=== PATIENT | female | born 1960 | race Caucasian/White ===

== ENCOUNTER 2016-12-24 14:19 | Outpatient (CLI) | payer OTHER ==
--- NOTE | 2016-12-24 15:43 | XRAY Report ---
TWO-VIEW LUMBAR SPINE: 12/24/2016 CLINICAL INDICATION: Back pain. FINDINGS: Frontal and lateral views of the lumbar spine demonstrate mild degenerative disc and facet disease at L5-S1. There is no evidence of fracture. The bowel gas pattern is normal. IMPRESSION: MILD DEGENERATIVE CHANGES AT L5-S1. JOB #: [id number] EXT JOB #:[id number]
--- NOTE | 2016-12-24 15:44 | XRAY Report ---
THREE VIEW RIGHT KNEE: 12/24/2016 CLINICAL INDICATION: Pain. AP, lateral, sunrise views of the right knee demonstrate no evidence of fracture or dislocation. The joint spaces are preserved. No radiopaque foreign body is seen in the soft tissues. IMPRESSION: NORMAL RIGHT KNEE. JOB #: [id number] EXT JOB #:[id number]
== END 2016-12-24 14:20 | disposition home or self-care (01) ==
LOC: DI 14:19
PROVIDERS: ATTEND Physician Assistant Medical
DX: M51.37 Other intervertebral disc degeneration, lumbosacral region (principal); M54.5 Low back pain; G89.29 Other chronic pain; M25.561 Pain in right knee
CPT/HCPCS: 72100

== ENCOUNTER 2017-01-15 16:32 | Outpatient (CLI) | payer OTHER ==
--- NOTE | 2017-01-16 11:01 | MRI Report ---
EXAM: RIGHT KNEE MRI WITHOUT CONTRAST EXAM DATE: 01/15/2017 05:43 PM. CLINICAL HISTORY: KNEE JOINT PAIN, RT. COMPARISON: RIGHT KNEE RADIOGRAPHY 12/24/2016. TECHNIQUE: Multiplanar, multisequence T1-weighted and fluid-sensitive sequences of the knee without c ontrast. Other: None. FINDINGS: Bones: No cortical fractures or subluxations. Diffuse marrow edema in the proximal tibia, medial more than lateral, consistent with contusion. No bone lesions. Articular Cartilage: Grade 2-3 cartilaginous degeneration with mild thinning and irregular surface in the patella, trochlea and medial femoral condyle. Medial Meniscus: A small radial tear in the posterior meniscal root of the medial meniscus. Lateral Meniscus: The lateral meniscus is intact. Cruciate Ligaments: The anterior and posterior cruciate ligaments are intact. Collateral Ligaments: The medial collateral and lateral collateral ligamentous structures are intact. Tendons: The quadriceps, patellar, semimembranosus, and popliteus tendons are unremarkable. Musculature: No edema or fatty atrophy. Other: Mild effusion without hemarthrosis or significant synovitis. No popliteal cyst. No loose naseem s. The medial and lateral retinacula, patellofemoral ligaments and iliotibial band are intact. No bu rsitis. Mild diffuse subcutaneous edema around the knee without focal hematoma. The fat pads are unre markable. IMPRESSION: 1. Diffuse marrow edema in the proximal tibia, medial more than lateral, consistent with contusion. N o cortical fracture. 2. A small radial tear in the posterior meniscal root of the medial meniscus. 3. Grade 2-3 cartilaginous degeneration with mild thinning and irregular surface in the patella, troc hlea and medial femoral condyle. 4. Mild effusion without hemarthrosis or significant synovitis. 5. Mild diffuse subcutaneous edema around the knee without focal hematoma, can be due to soft tissue contusion. 6. Collateral and cruciate ligaments are intact. [facility] MUSCULOSKELETAL RADIOLOGY SECTION Referring Provider Line: [phone] SITE ID: [id number]
== END 2017-01-15 16:33 | disposition home or self-care (01) ==
LOC: DI 16:32
PROVIDERS: ATTEND Physician Assistant Medical
DX: M25.561 Pain in right knee (principal); S83.241A Other tear of medial meniscus, current injury, right knee, initial encounter; S80.01XA Contusion of right knee, initial encounter; M25.461 Effusion, right knee

== ENCOUNTER 2017-05-17 09:44 | Outpatient (CLI) | payer OTHER ==
--- NOTE | 2017-05-17 16:33 | Mammography Report ---
DATE OF SERVICE: 05/17/2017 DIGITAL DIAGNOSTIC BILATERAL MAMMOGRAM: 05/17/2017 CLINICAL INDICATION: Localized left breast tenderness. TECHNIQUE: Bilateral CC and MLO views, left true lateral view. Markers were placed at the site of maximal tenderness identified by the patient in the left upper outer quadrant. COMPARISON: 08/04/2015, 04/27/2014, 07/29/2009. FINDINGS: The breasts again demonstrate scattered fibroglandular densities bilaterally. Punctate, typically benign calcifications are present. No suspicious masses, clustered microcalcifications, or regions of architectural distortion are identified. Specifically, no mammographic abnormality is appreciated in the left upper outer quadrant, at the site indicated by the markers. IMPRESSION: BENIGN FINDINGS. RECOMMENDATION: ROUTINE ANNUAL SCREENING UNLESS OTHERWISE CLINICALLY INDICATED. BIRADS CATEGORY 2-BENIGN FINDINGS. STANDARD QUALIFYING STATEMENTS: 1. This examination was reviewed with the aid of Computer-Aided Detection (CAD). 2. A negative or benign imaging report should not delay biopsy if clinically suspicious findings are present. Consider surgical consultation if warranted. More than 5% of cancers are not identified by imaging. 3. Dense breasts may obscure an underlying neoplasm. TD: 05/17/2017 17:32
== END 2017-05-17 09:45 | disposition home or self-care (01) ==
LOC: DI 09:44
PROVIDERS: ATTEND Physician Assistant Medical
DX: N64.4 Mastodynia (principal)
CPT/HCPCS: 77066

== ENCOUNTER 2017-10-31 11:26 | Outpatient (CLI) | payer OTHER ==
[2017-10-31 11:49] LABS: BASOPHILS % (AUTO) 0.6 %; EOSINOPHILS # (AUTO) 0.1 10^3/uL (0.0-0.7); EOSINOPHILS % (AUTO) 2.4 %; HGB - HEMOGLOBIN 12.4 g/dL (12.0-16.0); LYMPHOCYTES # (AUTO) 1.4 10^3/uL (1.5-3.5); LYMPHOCYTES % (AUTO) 22.3 %; MEAN CORPUSCULAR HEMOGLOBIN 31.5 pg (27.0-31.0); MEAN CORPUSCULAR HGB CONC 34.3 g/dL (32.0-36.0); MEAN CORPUSCULAR VOLUME 91.9 fL (81.0-99.0); MEAN PLATELET VOLUME 7.5 fL (7.9-10.8); MONOCYTES # (AUTO) 0.6 10^3/uL (0.0-1.0); MONOCYTES % (AUTO) 9.6 %; NEUTROPHILS % (AUTO) 65.1 %; PLT - PLATELET COUNT 229 10^3/uL (130-450); RED BLOOD COUNT 3.93 10^6/uL (4.20-5.40); RED CELL DISTRIBUTION WIDTH 14.1 % (12.0-15.0); WHITE BLOOD COUNT 6.2 x10^3/uL (4.8-10.8)
[2017-10-31 12:09] LABS: % IRON SATURATION 20 % (20-50); ALBUMIN 3.8 g/dL (3.2-5.5); ALKALINE PHOSPHATASE 67 IU/L (42-121); ALT ALANINE AMINOTRANSFERASE 16 IU/L (10-60); AST ASPARTATE AMINOTRANSFERASE 20 IU/L (10-42); BILIRUBIN,TOTAL 0.6 mg/dL (0.2-1.0); BUN - BLOOD UREA NITROGEN 12 mg/dL (6-20); CALCIUM 8.8 mg/dL (8.5-10.3); CARBON DIOXIDE - CO2 27 mmol/L (21-32); CHLORIDE 103 mmol/L (101-111); CHOL/HDL RATIO 3.1 (<4.4); CHOLESTEROL 223 mg/dL; CREATININE 0.8 mg/dL (0.4-1.0); GFR - MDRD 74 (>89); GLUCOSE 87 mg/dL (70-100); HDL CHOLESTEROL 71 mg/dL; IRON 76 ug/dL (28-170); LDL CHOLESTEROL,CALCULATED 131 mg/dL; LDL/HDL RATIO 1.8 (<4.4); SODIUM 136 mmol/L (135-145); TOTAL IRON BINDING CAPACITY 388 ug/dL (250-450); TOTAL PROTEIN 7.5 g/dL (6.7-8.2); TRANSFERRIN 277 mg/dL (192-382); VLDL CHOLESTEROL 21 mg/dL
--- NOTE | 2017-10-31 13:11 | XRAY Report ---
Procedure Date: 10/31/2017 Accession Number: [id number] / [id number] Procedure: XR - Chest 2 View X-Ray CPT Code: 79216 FULL RESULT: EXAM: Chest 2 View X-Ray DATE: 10/31/2017 12:45 PM CLINICAL HISTORY: COUGH COMPARISON: 07/17/2015 TECHNIQUE: 2 views. FINDINGS: Lungs/Pleura: No focal opacities evident. No pneumothorax or pleural effusion. Normal volumes. Mediastinum: Heart and mediastinal contours are unremarkable. Other: None. IMPRESSION: Normal 2-view chest radiography. [facility]
== END 2017-10-31 11:27 | disposition home or self-care (01) ==
LOC: LAB 11:26
PROVIDERS: ATTEND Physician Assistant Medical
DX: Z00.00 Encounter for general adult medical examination without abnormal findings (principal); R53.83 Other fatigue; R05 Cough
CPT/HCPCS: 36415; 71046; 80053; 80061; 83540; 83721; 84443; 84466; 85025

== ENCOUNTER 2017-11-22 13:00 | Outpatient (CLI) | payer OTHER ==
--- NOTE | 2017-11-22 15:44 | Ultrasound Report ---
Procedure Date: 11/22/2017 Accession Number: [id number] / [id number] Procedure: US - Pelvic w/Transvaginal CPT Code: FULL RESULT: EXAM: Pelvic w/Transvaginal DATE: 11/22/2017 2:40 PM CLINICAL HISTORY: EXCESSIVE MENSTRUATION COMPARISON: None. TECHNIQUE: Realtime transabdominal imaging performed to identify the uterus and adnexa and as an overview of other pelvic structures, followed by transvaginal imaging for better assessment of the endometrium and/or adnexa, with static image documentation. FINDINGS: Uterus: 9.8 x 5.7 x 4.9 cm, volume 143 cc. Anteverted position. Multiple submucosal and intramural fibroids are identified, the largest fibroid measures up to 1.9 cm and is submucosal in position. Endometrium: 7 mm. Deformed by submucosal fibroids. Cervix: Unremarkable. Right Ovary/Adnexa: 2.6 x 1.9 x 1.1 cm, volume 2.8 cc. Normal echotexture. Blood flow is present. No adnexal mass is seen. Left Ovary/Adnexa: 3.0 x 1.5 x 1.3 cm, volume 3 cc. Normal echotexture. Blood flow is present. No adnexal mass is seen. Free Fluid: None. Other: None. IMPRESSION: Fibroid uterus including submucosal fibroids. [facility]
== END 2017-11-22 13:01 | disposition home or self-care (01) ==
LOC: DI 13:00
PROVIDERS: ATTEND Physician Assistant
DX: D25.1 Intramural leiomyoma of uterus (principal); D25.0 Submucous leiomyoma of uterus
CPT/HCPCS: 76830; 76856

== ENCOUNTER 2018-07-07 14:43 | Outpatient (CLI) | payer OTHER ==
--- NOTE | 2018-07-08 00:51 | Ultrasound Report ---
Reason: PELVIC PAIN, CHRONIC Procedure Date: 07/07/2018 Accession Number: [id number] / [id number] Procedure: US - Pelvic w/Transvaginal CPT Code: FULL RESULT: EXAM: PELVIC ULTRASOUND EXAM DATE: 07/07/2018 03:08 PM. CLINICAL HISTORY: PELVIC PAIN, CHRONIC. COMPARISON: PELVIC W/TRANSVAGINAL 11/22/2017 1:09 PM. TECHNIQUE: Realtime transabdominal pelvic scan performed to identify the uterus and adnexa and as an overview of other pelvic structures, followed by transvaginal scan to provide greater detail of the uterus and adnexa, with static image documentation. FINDINGS: Uterus: 9.4 x 6.5 x 5.1 cm, volume 163 cc. Anteverted position. Heterogeneous myometrium. Masses: Leiomyomas, now measuring up to 2.4 cm in diameter, slightly increased from previous. Endometrium: 4 mm. Normal. Cervix: Unremarkable. Right Ovary: 5.6 x 4.2 x 4.5 cm, volume 62 cc. The right ovary contains a 4.1 cm simple cyst. Normal flow is seen to the surrounding ovarian parenchyma. Left Ovary: 2.7 x 1.6 x 1.3 cm, volume 3 cc. Normal echotexture and blood flow. Free Fluid: None. Other: None. IMPRESSION: 4.1 cm simple right ovarian cyst. Follow-up scan in 2-3 months is recommended to document resolution. Slight increase in size of multiple leiomyomas in the uterus. Normal endometrium. [facility]
== END 2018-07-07 14:44 | disposition home or self-care (01) ==
LOC: DI 14:43
PROVIDERS: ATTEND Physician Assistant
DX: N83.201 Unspecified ovarian cyst, right side (principal); D25.9 Leiomyoma of uterus, unspecified
CPT/HCPCS: 76830; 76856

== ENCOUNTER 2019-03-11 14:07 | Outpatient (CLI) | payer OTHER ==
--- NOTE | 2019-03-11 15:27 | Ultrasound Report ---
Reason: CALF PAIN LT Procedure Date: 03/11/2019 Accession Number: [id number] / [id number] Procedure: US - Duplex Ext Veins Left CPT Code: Addended Final Report FULL RESULT: EXAM: LEFT LOWER EXTREMITY VENOUS ULTRASOUND EXAM DATE: 03/11/2019 03:11 PM. CLINICAL HISTORY: CALF PAIN LT. COMPARISON: DUPLEX EXT VEINS LEFT 07/27/2015 5:15 PM. TECHNIQUE: Real-time sonographic vascular imaging was performed by the supervisor coal handling through the lower extremity utilizing both color-flow and Doppler spectral analysis. Multiple technology sales representative static images were saved for review. FINDINGS: Common Femoral Vein (CFV): Normal. CFV-GSV Junction: Nonocclusive thrombus is present within the left greater saphenous vein. Profunda Femoral Vein (PFV): Normal. Femoral Vein (FV) Prox: Normal. Femoral Vein (FV) Mid: Normal. Femoral Vein (FV) Dist: Normal. Popliteal Vein: Normal. Posterior Tibial Veins: Normal. Peroneal Veins: Normal. Other: None. IMPRESSION: 1. No evidence of left lower extremity deep venous thrombosis. 2. Nonocclusive thrombus in the left greater saphenous vein. [facility] The call report notification system was initiated by Dr. Mikhail Pack at 03:25 PM on 03/11/2019. ADDENDUM: 03/11/19 15:41 The above call report findings were discussed with [place] WARE by Dr. Mikhail Pack at 03:41 PM on 03/11/2019.
== END 2019-03-11 14:08 | disposition home or self-care (01) ==
LOC: DI 14:07
PROVIDERS: ATTEND Physician Assistant Medical
DX: I82.812 Embolism and thrombosis of superficial veins of left lower extremity (principal)

== ENCOUNTER 2019-04-16 15:37 | Outpatient (CLI) | payer OTHER ==
--- NOTE | 2019-04-18 09:55 | Ultrasound Report ---
Reason: RT OVARIAN CYST Procedure Date: 04/16/2019 Accession Number: [id number] / [id number] Procedure: US - Pelvic w/Transvaginal CPT Code: Final Report FULL RESULT: EXAM: PELVIC ULTRASOUND EXAM DATE: 04/16/2019 04:42 PM. CLINICAL HISTORY: Follow-up for centimeters right ovarian cyst. COMPARISON: PELVIC W/TRANSVAGINAL 07/07/2018 3:08 PM. TECHNIQUE: Realtime transabdominal pelvic scan performed to identify the uterus and adnexa and as an overview of other pelvic structures, followed by transvaginal scan to provide greater detail of the uterus and adnexa, with static image documentation. FINDINGS: Uterus: Surgically absent. Cervix: Unremarkable. Right Ovary: 2.1 x 1.2 x 1.2 cm, volume 1.5 cc. Normal echotexture and blood flow. Suboptimally visualized. Left Ovary: 2.1 x 1.2 x 1.9 cm, volume 2.6 cc. Normal echotexture and blood flow. Suboptimally visualized. Free Fluid: None. Other: None. IMPRESSION: 1. Interval resolution of right ovarian cystic lesion. 2. Status post hysterectomy. [facility]
== END 2019-04-16 15:38 | disposition home or self-care (01) ==
LOC: DI 15:37
PROVIDERS: ATTEND Obstetrics & Gynecology
DX: N83.201 Unspecified ovarian cyst, right side (principal)
CPT/HCPCS: 76830; 76856

== ENCOUNTER 2020-02-01 16:20 | Outpatient (CLI) | payer OTHER ==
[2020-02-01 18:54] LABS: H. PYLORIS ANTIGEN STL NEGATIVE (Negative)
== END 2020-02-01 23:59 | disposition home or self-care (01) ==
LOC: LAB.R 16:20
PROVIDERS: ATTEND Physician Assistant Medical
DX: K21.9 Gastro-esophageal reflux disease without esophagitis (principal)
CPT/HCPCS: 87338

== ENCOUNTER 2020-02-10 13:03 | Outpatient (CLI) | payer OTHER ==
--- NOTE | 2020-02-10 16:39 | Ultrasound Report ---
PROCEDURE: Abdomen Limited INDICATIONS: GERD TECHNIQUE: Real-time scanning was performed of the abdominal and retroperitoneal organs, with image documentatio n. COMPARISON: None. FINDINGS: Liver: Liver is enlarged measuring 16 cm with increased echotexture. Gallbladder: No stones. Wall thickness is normal limits measuring 1.8 mm. Biliary ducts: Intrahepatic bile ducts are non-dilated. Extrahepatic bile duct caliber measures 5 m m. Normal is 6-7 mm or less in diameter, or 10 mm or less post-cholecystectomy. Pancreas: Visualized portions of the pancreas are sonographically normal. Kidneys: Kidneys are normal in size and echotexture. Right kidney measures 10.6 cm long. No hydron ephrosis or nephrolithiasis. No solid masses. Aorta: Visualized aorta is normal in caliber at less than 3 cm. IVC: Intrahepatic inferior vena cava is patent. IMPRESSION: Mild hepatomegaly with steatosis. Reviewed by: Ely Douglas MD on 02/10/2020 4:38 PM PDT Approved by: Ely Douglas MD on 02/10/2020 4:38 PM PDT Station ID: [id number]
== END 2020-02-10 13:04 | disposition home or self-care (01) ==
LOC: DI 13:03
PROVIDERS: ATTEND Physician Assistant Medical
DX: K21.9 Gastro-esophageal reflux disease without esophagitis (principal); K76.0 Fatty (change of) liver, not elsewhere classified
CPT/HCPCS: 76705

== ENCOUNTER 2020-09-23 17:34 | Emergency (ER) | payer OTHER ==
--- NOTE | 2020-09-23 17:59 | ED Physician Documentation ---
PD HPI ABD PAIN - Stated complaint Stated Complaint: ABD/GROIN PX - Chief complaint Chief Complaint: Abd Pain - History obtained from History obtained from: Patient - Additional information Additional information: 60-year-old woman with history of colonic polyposis, hysterectomy presents with about 3 days worth of right pelvic pain radiating to the right inguinal area. It is also associated with early satiety and smaller stool occult caliber. Also some diminished stools. She denies fevers. She has had some nausea. No urinary complaints. Review of Systems Ten Systems: 10 systems reviewed and negative Constitutional: denies: Fever, Chills Cardiac: denies: Chest pain / pressure, Palpitations Respiratory: denies: Dyspnea, Cough PD PAST MEDICAL HISTORY - Past Medical History Cardiovascular: Hypertension Respiratory: None Endocrine/Autoimmune: None GI: None : None HEENT: None Psych: None Musculoskeletal: None Derm: None - Past Surgical History Past Surgical History: Yes General: Colonoscopy /FITTING ROOM ASSOCIATE: Tubal ligation HEENT: Tonsil/Adenoidectomy - Present Medications Home Medications: Ambulatory Orders Medication Instructions Recorded Confirmed Lisinopril [Zestril] 10 mg PO DAILY 09/23/20 09/23/20 - Allergies Allergies/Adverse Reactions: Allergies Allergy/AdvReac Type Severity Reaction Status Date / Time No Known Drug Allergies Allergy Verified 09/23/20 17:42 - Social History Does the pt smoke?: No Smoking Status: Never smoker Does the pt drink ETOH?: Yes Does the pt have substance abuse?: No - Family History Family history: reports: Non contributory PD ED PE NORMAL - Vitals Vital signs reviewed: Yes - General General: Alert and oriented X 3, No acute distress - HEENT HEENT: PERRL, EOMI - Neck Neck: Supple, no meningeal sign, No bony TTP - Cardiac Cardiac: RRR, No murmur - Respiratory Respiratory: No respiratory distress, Clear bilaterally - Abdomen Abdomen: Normal bowel sounds, Soft, Non tender - Back Back: No CVA TTP, No spinal TTP - Derm Derm: Normal color, Warm and dry - Extremities Extremities: No edema, No calf tenderness / cord - Neuro Neuro: Alert and oriented X 3, Normal speech Results - Vitals Vitals: Vital Signs - 24 hr 09/23/20 17:37 Temperature 36.4 C L Heart Rate 64 Respiratory 16 Rate Blood Pressure 152/82 H O2 Saturation 99 Oxygen O2 Source Room air - Labs Labs: Laboratory Tests 09/23/20 09/23/20 09/23/20 18:09 18:09 18:34 WBC 6.0 RBC 3.91 L Hgb 12.4 Hct 36.3 L MCV 92.8 MCH 31.7 H MCHC 34.2 RDW 13.1 Plt Count 199 MPV 9.6 Neut # (Auto) 3.7 Lymph # (Auto) 1.5 Trigg # (Auto) 0.6 Eos # (Auto) 0.2 Baso # (Auto) 0.0 Absolute Nucleated RBC 0.00 Nucleated RBC % 0.0 Sodium 138 Potassium 3.9 Chloride 107 Carbon Dioxide 26 Anion Gap 5.0 L BUN 19 Creatinine 0.8 Estimated GFR (MDRD) 74 L Glucose 96 Calcium 9.0 Total Bilirubin 0.5 AST 16 ALT 15 Alkaline Phosphatase 65 Total Protein 7.2 Albumin 4.2 Globulin 3.0 Albumin/Globulin Ratio 1.4 Lipase 40 Urine Color YELLOW Urine Clarity CLEAR Urine pH 6.0 Ur Specific [place] 1.025 Urine Protein NEGATIVE Urine Glucose (UA) NEGATIVE Urine Ketones NEGATIVE Urine Occult Blood NEGATIVE Urine Nitrite NEGATIVE Urine Bilirubin NEGATIVE Urine Urobilinogen 0.2 (NORMAL) Ur Leukocyte Esterase NEGATIVE Ur Microscopic Review NOT INDICATED Urine Culture Comments NOT INDICATED - Rads (name of study) CT A/P Radiology: EMP read contemporaneously PD MEDICAL DECISION MAKING - ED course ED course: 60-year-old woman presents with pelvic and back pain radiating to the groin worse with movement. Seems most consistent with a muscular etiology or potentially sciatica. That said the change in stool caliber is not on complaint to go along with that, so a CT was done showing diverticulosis and degenerative disc disease but no acute inflammatory process in the abdomen and a normal appendix. She declined pain medication. We discussed potentially a trial of steroids for sciatica which she declined. Departure - Departure Disposition: 01 Home, Self Care Clinical Impression: Abdominal pain Qualifiers: Abdominal location: right lower quadrant Qualified Code(s): R10.31 - Right lower quadrant pain Sciatica Qualifiers: Laterality: right Qualified Code(s): M54.31 - Sciatica, right side Condition: Good Record reviewed to determine appropriate education?: Yes Instructions: ED Strain Abdominal Muscle, ED Sciatica Comments: As discussed, given the change in stool caliber you do need to talk with your doctor about colonoscopy. Return for new or worsening symptoms. Tylenol or ibuprofen as needed for pain. Follow-up with your physician.
[2020-09-23 18:13] LABS: BASOPHILS % (AUTO) 0.5 %; EOSINOPHILS # (AUTO) 0.2 10^3/uL (0.0-0.7); EOSINOPHILS % (AUTO) 2.9 %; HCT - HEMATOCRIT 36.3 % (37.0-47.0); HGB - HEMOGLOBIN 12.4 g/dL (12.0-16.0); LYMPHOCYTES # (AUTO) 1.5 10^3/uL (1.5-3.5); MEAN CORPUSCULAR HEMOGLOBIN 31.7 pg (27.0-31.0); MEAN CORPUSCULAR HGB CONC 34.2 g/dL (32.0-36.0); MEAN CORPUSCULAR VOLUME 92.8 fL (81.0-99.0); MEAN PLATELET VOLUME 9.6 fL (7.9-10.8); MONOCYTES # (AUTO) 0.6 10^3/uL (0.0-1.0); MONOCYTES % (AUTO) 9.2 %; NEUTROPHILS # (AUTO) 3.7 10^3/uL (1.5-6.6); NEUTROPHILS % (AUTO) 62.2 %; PLT - PLATELET COUNT 199 10^3/uL (130-450); RED BLOOD COUNT 3.91 10^6/uL (4.20-5.40); RED CELL DISTRIBUTION WIDTH 13.1 % (12.0-15.0)
--- OUTSIDE RECORDS SUMMARY | 2020-09-23 18:17 | EXTERNAL MEDICAL SUMMARY RPT | Continuity of Care Document ---
:1960 Demographics Phone Unavailable Preferred Language Unknown Marital Status Unknown Confucianist Affiliation Unknown Race Unknown Ethnic Group Unknown Author Organization [facility] Address [address] [place] [address] Phone Allergies Encounters Medications Problems Results
[2020-09-23] MEDS ORDERED: IOVERSOL 320 100 ML VIAL IVP ONE ×2 (18:23→20:15)
[2020-09-23 18:26] LABS: ALBUMIN 4.2 g/dL (3.2-5.5); ALBUMIN/GLOBULIN RATIO 1.4 (1.0-2.2); BILIRUBIN,TOTAL 0.5 mg/dL (0.2-1.0); CREATININE 0.8 mg/dL (0.4-1.0); POTASSIUM 3.9 mmol/L (3.5-5.0); TOTAL PROTEIN 7.2 g/dL (6.7-8.2)
[2020-09-23 18:50] LABS: BILIRUBIN,URINE NEGATIVE (NEGATIVE); GLUCOSE, URINE (UA) NEGATIVE (NEGATIVE); KETONES,URINE (UA) NEGATIVE (NEGATIVE); LEUKOCYTE ESTERASE, URINE NEGATIVE (NEGATIVE); NITRITE,URINE NEGATIVE (NEGATIVE); OCCULT BLOOD,URINE NEGATIVE (NEGATIVE); PROTEIN,URINE NEGATIVE (NEGATIVE); UROBILINOGEN,URINE 0.2 (NORMAL) E.U./dL (NORMAL)
[2020-09-23 18:52] LABS: CLARITY,URINE CLEAR (CLEAR)
--- NOTE | 2020-09-23 19:36 | CT Report ---
PROCEDURE: Abdomen/Pelvis W INDICATIONS: Upper and lower abd pain CONTRAST: IV CONTRAST: Optiray 320 ml: 100 PO CONTRAST: *NO PO CONTRAST TECHNIQUE: After the administration of intravenous contrast, 5 mm thick sections acquired from the diaphragms to the symphysis. 5 mm thick coronal and sagittal reformats were acquired. For radiation dose reducti on, the following was used: automated exposure control, adjustment of mA and/or kV according to sona ent size. COMPARISON: Abdominal ultrasound 02/10/2020. FINDINGS: Image quality: Excellent. ABDOMEN: Lung bases: Lung bases are clear. Heart size is normal. Solid organs: Liver and spleen are normal in size. Gallbladder is unremarkable. Biliary system is non dilated. Pancreas enhances normally. No adrenal nodules. Kidneys demonstrate normal size and e nhancement, without hydronephrosis. Peritoneum and bowel: No small bowel obstruction. Sigmoid colon diverticulosis. No diverticulitis dem onstrated. Normal appendix. No free fluid or air. Nodes and vessels: No retroperitoneal or mesenteric adenopathy by size criteria. Aorta and inferior vena cava are normal in size. Miscellaneous: No significant ventral hernias. PELVIS: Genitourinary: Bladder is unremarkable and only partially distended. Retroverted uterus. No free flu id. Miscellaneous: No inguinal hernias or adenopathy. Bones: No suspicious bony lesions. L5-S1 DDD. No vertebral body compression fractures. IMPRESSION: No acute inflammatory process is identified. No free fluid. Diverticulosis. No diverticulitis demonstrated. Normal appendix. Reviewed by: Davide Blue MD on 09/23/2020 7:34 PM PDT Approved by: Davide Blue MD on 09/23/2020 7:34 PM PDT Station ID: [id number]
[2020-09-23 20:02] VITALS: BP 142/79
== END 2020-09-23 20:25 | disposition home or self-care (01) ==
LOC: ED 17:34
DX: R10.31 Right lower quadrant pain (principal); M54.31 Sciatica, right side; K57.30 Diverticulosis of large intestine without perforation or abscess without bleeding; M51.37 Other intervertebral disc degeneration, lumbosacral region; I10 Essential (primary) hypertension
CPT/HCPCS: 36415; 74177; 80053; 81003; 83690; 85025; 99284; Q9967; 81001; 87086

== ENCOUNTER 2020-10-12 10:54 | Outpatient (CLI) | payer OTHER ==
--- NOTE | 2020-10-12 15:02 | Nuclear Medicine Report ---
PROCEDURE: Hepatobiliary HIDA w/ Rx INDICATIONS: RIGHT UPPER QUAD PAIN RADIOPHARMACEUTICAL: 4.9 mCi Tc-99m meprofenin i.v. and 8 oz Ensure by mouth. TECHNIQUE: Following intravenous administration of Tc-99m meprofenin, sequential anterior abdominal images were obtained through 55 minutes. To evaluate the contractile response of the gallbladder in response to a fatty meal, 8 ounces of Ensure was administered by mouth approximately 1 hour after th e administration of the radiopharmaceutical. Sequential imaging was continued for 55 minutes after E nsure administration. Gallbladder ejection fraction was calculated. COMPARISON: CT abdomen pelvis 09/15/2020, ultrasound abdomen 02/10/2020. FINDINGS: Biliary scan: There is normal tracer uptake and excretion by the liver. There is normal visualizati on of the intrahepatic ducts, common bile duct, and gallbladder. There is normal tracer transit into the duodenum. CCK stimulation: There is progressive contractile response of the gallbladder to Ensure administrati on. The calculated gallbladder ejection fraction is 56%; normal values are above 35%. IMPRESSION: 1. Normal study without gallbladder dysfunction to suggest cholecystitis. Reviewed by: Matthew Giang MD on 10/12/2020 3:00 PM PDT Approved by: Matthew Giang MD on 10/12/2020 3:00 PM PDT Station ID: [id number]
--- NOTE | 2020-10-13 08:19 | Ultrasound Report ---
PROCEDURE: Pelvic w/Transvaginal INDICATIONS: CHRONIC PELVIC PAIN, RIGHT UPPER QUAD PAIN TECHNIQUE: Real-time scanning was performed of the pelvic organs, with image documentation. Additional endovagi nal scanning was necessary due to incomplete visualization of the adnexal and endometrial structures by transabdominal scanning. COMPARISON: None. FINDINGS: No pathologic free abdominal or pelvic fluid. Uterus: Status post hysterectomy. Ovaries: Unable to image, possible prior nephrectomy. Please correlate with history. Miscellaneous: The exam is limited due to bowel gas and body habitus. In the area of pain a questiona ble small fat-containing reducible hernia is identified which is difficult to define with ultrasound. Note that prior CT on 07/24/2020 imaged this area with no abnormality identified. IMPRESSION: 1. No acute ultrasound abnormality of the pelvis. 2. Limited exam due to overlying bowel gas and body habitus. 3. Possible small reducible fat-containing hernia on the right in the area of pain. Reviewed by: Shiv Torres on 10/13/2020 8:18 AM PDT Approved by: Shiv Torres on 10/13/2020 8:18 AM PDT Station ID: [id number]
== END 2020-10-12 10:55 | disposition home or self-care (01) ==
LOC: DI 10:54
PROVIDERS: ATTEND Physician Assistant Medical
DX: R10.11 Right upper quadrant pain (principal); R10.2 Pelvic and perineal pain; G89.29 Other chronic pain
CPT/HCPCS: 78227

== ENCOUNTER 2021-04-18 08:24 | Day surgery (SDC) | payer OTHER ==
[2021-04-18] MEDS ORDERED: LACTATED RINGERS 1,000 ML IV ONE (08:53)
--- NOTE | 2021-04-18 09:03 | ANESTHESIA ---
Pre-Anesthesia VS, & Labs - Diagnosis colon polyps - Procedure colonoscopy, banding Vital Signs: Temp Pulse Resp BP Pulse Ox 36.7 C 87 14 163/90 H 96 04/18/21 08:46 04/18/21 08:46 04/18/21 08:46 04/18/21 08:46 04/18/21 08:46 Height: 5 ft 8 in Weight (kg): 92.7 kg Body Mass Index: 31.0 BMI Classification: Obese - NPO >8 hours - Is Patient ?: No Home Medications and Allergies Lisinopril [Zestril] 10 mg PO DAILY 09/23/20 Allergies/Adverse Reactions: Allergies Allergy/AdvReac Type Severity Reaction Status Date / Time No Known Drug Allergies Allergy Verified 09/23/20 17:42 Anes History & Medical History - Anesthetic History Anesthesia Complications: reports: No previous complications - Medical History Cardiovascular: reports: Hypertension, Other Pulmonary: reports: None Gastrointestinal: reports: GERD Urinary: reports: None Musculoskeletal: reports: Osteoarthritis Endocrine/Autoimmune: reports: None Skin: reports: Psoriasis Smoking Status: Never smoker History of Cancer?: No - Surgical History General: reports: Colonoscopy, Other Eyes Ears Nose Throat (EENT): reports: Tonsil/Adenoidectomy Gynecologic: reports: Tubal ligation, Hysterectomy Exam General: Alert Dental: WNL Mouth Opening: Greater than 4 Fingerbreadths Neck Mobility: Normal Mallampati classification: II Thyromental Distance: greater than 6 cm Respiratory: Lungs clear Cardiovascular: Regular rate Plan Anesthesia Type: Total IV Consent for Procedure(s) Verified and Reviewed: Yes Code Status: Attempt Resuscitation ASA classification: 2-Mild systemic disease Is this case an emergency?: No
[2021-04-18] MEDS ORDERED: PROPOFOL 500 MG/50 ML 500 MG/50 ML VIAL ONE (09:34)
[2021-04-18] MEDS ORDERED: MIDAZOLAM 2 MG/2 ML VIAL ONE (09:35)
[2021-04-18] MEDS ORDERED: LIDOCAINE-MPF 2% 5 ML VIAL ONE (10:24)
[2021-04-18] MEDS ORDERED: PROPOFOL 200 MG/20 ML VIAL IVP ONE ×3 (10:56→11:20)
[2021-04-18] MEDS ORDERED: LACTATED RINGERS 450 ML IV ONE (11:27)
[2021-04-18] MEDS ORDERED: ACETAMINOPHEN 325 MG TABLET PO ONE (12:41)
[2021-04-18 12:58] VITALS: BP 135/84
--- NOTE | 2021-04-18 13:14 | OPERATIVE REPORT ---
Operative Report - General Procedure Date: 04/18/21 Planned Procedure: Examination under anesthesia with hemorrhoid banding Pre-Op Diagnosis: Symptomatic Internal hemorrhoids Procedure Performed: Examination under anesthesia with hemorrhoid banding following colonoscopy Post Op Diagnosis: Symptomatic Internal Hemorrhoids - Procedure Note Primary Surgeon: Caryn Anesthesia Provider: LYUBOV Araujo Anesthesia Technique: MAC Pathology: None Estimated Blood Loss (mL): 1 Indications: Symptomatic internal hemorrhoids Findings: A full maribell of enlarged internal hemorrhoids with associated inflammatory polyps Complications: None apparent - Other Other Information/Narrative: Colonoscopy was completed immediately prior to the banding procedure. Timeout wa s done at the start of the colonoscopy procedure.The patient remained sedated with monitored anesthesia care at this time. All elements of the surgical safety checklist were followed before, during, and after this procedure. The anoscope with obturator was lubricated and placed in the patient's anal canal. The obturator was removed and the slots aligned to allow access to 3 column internal hemorrhoids. The device, the Brightstorm multi band ligator-short shot-was placed into the anal canal. The tip of the device was placed in contact with the tissue to be treated beginning at the 4 o'clock position. The suction port was closed. A single band was deployed and the suction port released.The band was noted to be in place.We next addressed the hemorrhoid complex at 7:00.The tip of the device was placed in contact with the tissue, the suction port covered, a band deployed, the suction port released. Again we were able to see that the band was in place.We next addressed the hemorrhoid at the 11 o'clock position. This was the smallest of the 3. The tip of the device was placed in contact with the tissue, the suction port covered, a band deployed, the suction port released. Again we were able to see that the band was in place.Examination of the anal count canal revealed all [address] The anoscope was removed and the procedure concluded. The patient tolerated the procedure well. She was allowed awaken from sedation and taken to the postanesthesia care unit in good condition.
--- NOTE | 2021-04-18 13:36 | ANESTHESIA POST OP EVALUATION ---
Anesthesia Post Eval - Post Anesthesia Eval Vitals: Last Vital Signs Temp 36.3 C L 04/18/21 12:15 Pulse 62 04/18/21 12:15 Resp 16 04/18/21 12:15 BP 135/84 H 04/18/21 12:15 Pulse Ox 98 04/18/21 12:15 CV Function Including HR & BP: Stable Pain Control: Satisfactory Nausea & Vomiting: Negative Mental Status: Baseline Respiratory Status: Airway Patent Hydration Status: Satisfactory Anesthesia Complications: None
== END 2021-04-18 08:25 | disposition home or self-care (01) ==
LOC: SDS 08:24
PROVIDERS: ATTEND Surgery
PROC: 0DB58ZX Excision of Esophagus, Via Natural or Artificial Opening Endoscopic, Diagnostic (ICD-10-PCS; 2021-04-18)
PROC: 0DBL8ZX Excision of Transverse Colon, Via Natural or Artificial Opening Endoscopic, Diagnostic (ICD-10-PCS; 2021-04-18)
PROC: 0DBK8ZX Excision of Ascending Colon, Via Natural or Artificial Opening Endoscopic, Diagnostic (ICD-10-PCS; 2021-04-18)
PROC: 0DB98ZX Excision of Duodenum, Via Natural or Artificial Opening Endoscopic, Diagnostic (ICD-10-PCS; principal; 2021-04-18 10:00)
PROC: 0DB78ZX Excision of Stomach, Pylorus, Via Natural or Artificial Opening Endoscopic, Diagnostic (ICD-10-PCS; 2021-04-18 10:00)
DX: Z12.11 Encounter for screening for malignant neoplasm of colon (principal); K21.9 Gastro-esophageal reflux disease without esophagitis; K22.0 Achalasia of cardia; K29.70 Gastritis, unspecified, without bleeding; K29.80 Duodenitis without bleeding; K57.30 Diverticulosis of large intestine without perforation or abscess without bleeding; K64.4 Residual hemorrhoidal skin tags; K64.8 Other hemorrhoids; D12.2 Benign neoplasm of ascending colon; D12.3 Benign neoplasm of transverse colon; I10 Essential (primary) hypertension; Z86.19 Personal history of other infectious and parasitic diseases
CPT/HCPCS: 43239; 45380; 45385; 46221; J7120

== ENCOUNTER 2022-05-09 15:27 | Outpatient (CLI) | payer OTHER ==
--- NOTE | 2022-05-10 10:35 | Mammography Report ---
BILATERAL DIGITAL SCREENING MAMMOGRAM 3D/2D: 05/09/2022 CLINICAL: Routine screening. Comparison is made to exams dated: 05/17/2017 mammogram, 08/04/2015 mammogram, and 04/27/2014 mammogram - [facility]. There are scattered areas of fibroglandular density in both breasts (category b / 25%-50% glandular t issue). No significant masses, calcifications, or other findings are seen in either breast. There has been no significant interval change. IMPRESSION: NEGATIVE There is no mammographic evidence of malignancy. A 1 year screening mammogram is recommended. Based on the Tyrer Cuzick model (a risk assessment model) the patients lifetime risk is 5.5% and her 10 year risk is 2.1%. According to the ACR, ACS, and NCCN guidelines, an annual breast MRI exam lana g with mammogram is recommended if the patients lifetime risk is 20% or greater. This exam was interpreted at Station ID: [id number]. NOTE: For mammograms, a report in lay terms will be sent to the patient. Approximately 15% of breast malignancies will not be visualized mammographically. In the management of a palpable breast mass, a negative mammogram must not discourage biopsy of a clinically suspicious lesion. Electronically Signed By: Melvin [email or web address]:05/10/2022 06:46:11 ACR BI-RADS Category 1: Negative 3341F PARENCHYMAL PATTERN: (A) - The breast(s) demonstrate(s) scattered fibroglandular densities. BI-RADS CATEGORY: (1) - 1 RECOMMENDATION: (ANNUAL) - Recommend routine annual screening mammography. [id number] 1 year screening LATERALITY: (B)
== END 2022-05-09 15:28 | disposition home or self-care (01) ==
LOC: DI.N 15:27
PROVIDERS: ATTEND Nurse Practitioner
DX: Z12.31 Encounter for screening mammogram for malignant neoplasm of breast (principal)

== ENCOUNTER 2023-11-20 06:18 | Day surgery (SDC) | payer OTHER ==
[2023-11-20] MEDS: LACTATED RINGERS 1,000 ML IV ONE ×2 (06:56→08:15)
--- NOTE | 2023-11-20 07:09 | ANESTHESIA ---
Pre-Anesthesia VS, & Labs - Diagnosis HX COLON POLYPS - Procedure COLONOSCOPY Vital Signs: Temp Pulse Resp BP Pulse Ox O2 Flow Rate 36.3 C L 68 17 162/79 H 96 11/20/23 06:34 11/20/23 06:34 11/20/23 06:34 11/20/23 06:34 11/20/23 06:34 Height: 5 ft 8 in Weight (kg): 88.5 kg Body Mass Index: 29.6 BMI Classification: Overweight - NPO >8 hours, Other (BOWEL PREP COMPLETED) - Is Patient ?: No Home Medications and Allergies Home Medications: Ambulatory Orders Aspirin [[place] Aspirin] 81 mg PO DAILY 11/20/23 Pantoprazole [Protonix] 40 mg PO BID 11/20/23 glucosamine HCL [Glucosamine HCl] 1,500 mg PO DAILY 11/20/23 Lisinopril [Zestril] 10 mg PO DAILY 09/23/20 Aspirin [[place] Aspirin] 81 mg PO DAILY 11/20/23 Pantoprazole [Protonix] 40 mg PO BID 11/20/23 glucosamine HCL [Glucosamine HCl] 1,500 mg PO DAILY 11/20/23 Allergies/Adverse Reactions: Allergies Allergy/AdvReac Type Severity Reaction Status Date / Time No Known Drug Allergies Allergy Verified 09/23/20 17:42 Anes History & Medical History - Anesthetic History Anesthesia Complications: reports: No previous complications Family history of Anesthesia Complications: Denies Family history of Malignant Hyperthermia: Denies - Medical History Cardiovascular: reports: Hypertension, Other (Pt states "heart flutters" with anxiety) Pulmonary: reports: None Gastrointestinal: reports: GERD Urinary: reports: None Neuro: reports: Tremors Musculoskeletal: reports: Osteoarthritis Endocrine/Autoimmune: reports: None Blood Disorders: reports: None Skin: reports: Psoriasis Smoking Status: Former smoker (smoke free 20 years) Psychosocial: reports: No issues indicated, Alcohol (socially) History of Cancer?: No - Surgical History General: reports: Colonoscopy, Other Eyes Ears Nose Throat (EENT): reports: Tonsil/Adenoidectomy Gynecologic: reports: Tubal ligation, Hysterectomy Results - EKG Results EKG Comparison: Reviewed EKG, Normal EKG Exam General: Alert, Oriented x3, Cooperative, No acute distress Dental: WNL Mouth Openin Fingerbreadth Neck Mobility: Normal Mallampati classification: III Thyromental Distance: 4-6 cm Respiratory: Lungs clear, Normal breath sounds, No respiratory distress, No accessory muscle use Cardiovascular: Regular rate, Normal S1, Normal S2, No murmurs Mental/Cognitive Status: Alert/Oriented X3, Normal for patient Cognitive Status: Within normal limits Plan Anesthesia Type: General Consent for Procedure(s) Verified and Reviewed: Yes Code Status: Attempt Resuscitation ASA classification: 2-Mild systemic disease Is this case an emergency?: No
[2023-11-20] MEDS ORDERED: PROPOFOL 500 MG/50 ML 500 MG/50 ML VIAL ONE (07:24)
[2023-11-20] MEDS ORDERED: LIDOCAINE-MPF 2% 5 ML VIAL ONE (07:24)
[2023-11-20] MEDS ORDERED: PROPOFOL 200 MG/20 ML VIAL IVP ONE (07:54)
[2023-11-20 09:03] VITALS: BP 132/75; O2SAT 99
--- NOTE | 2023-11-20 11:26 | ANESTHESIA POST OP EVALUATION ---
Anesthesia Post Eval - Post Anesthesia Eval Vitals: Last Vital Signs Temp 36.6 C 11/20/23 09:00 Pulse 68 11/20/23 09:00 Resp 16 11/20/23 09:00 BP 132/75 H 11/20/23 09:00 Pulse Ox 99 11/20/23 09:00 O2 Flow Rate CV Function Including HR & BP: Stable Pain Control: Satisfactory Nausea & Vomiting: Negative Mental Status: Baseline Respiratory Status: Airway Patent Hydration Status: Satisfactory Anesthesia Complications: None
== END 2023-11-20 06:19 | disposition home or self-care (01) ==
LOC: SDS 06:18
PROVIDERS: ATTEND Surgery
PROC: 0DBL8ZZ Excision of Transverse Colon, Via Natural or Artificial Opening Endoscopic (ICD-10-PCS; 2023-11-20)
PROC: 0DBN8ZZ Excision of Sigmoid Colon, Via Natural or Artificial Opening Endoscopic (ICD-10-PCS; 2023-11-20)
PROC: 0DBM8ZZ Excision of Descending Colon, Via Natural or Artificial Opening Endoscopic (ICD-10-PCS; 2023-11-20)
PROC: 0DBM8ZX Excision of Descending Colon, Via Natural or Artificial Opening Endoscopic, Diagnostic (ICD-10-PCS; 2023-11-20)
PROC: 0DBH8ZZ Excision of Cecum, Via Natural or Artificial Opening Endoscopic (ICD-10-PCS; principal; 2023-11-20 07:30)
DX: Z12.11 Encounter for screening for malignant neoplasm of colon (principal); D12.0 Benign neoplasm of cecum; D12.4 Benign neoplasm of descending colon; D12.5 Benign neoplasm of sigmoid colon; K63.5 Polyp of colon; K57.30 Diverticulosis of large intestine without perforation or abscess without bleeding; K64.9 Unspecified hemorrhoids; Z87.891 Personal history of nicotine dependence; I10 Essential (primary) hypertension
CPT/HCPCS: 45380; 45385; J7120